=== PATIENT | female | born 1965 | race Caucasian/White ===

== ENCOUNTER → 2024-11-10 | Outpatient (CLI) | payer MEDICARE, MEDICAID, SELFPAY ==
[2024-11-10 16:55] LABS: Thyroid Stimulating Hormone 4.11 uIU/mL (0.55-4.78)
== END | disposition home or self-care (01) ==
LOC: COPL 14:58
PROVIDERS: PCP Family Medicine; Referring Provider Family Medicine; Visit Provider Family Medicine
DX: E03.9 Hypothyroidism, unspecified (principal)
CPT/HCPCS: 36415; 84443

== ENCOUNTER 2025-02-14 12:49 | Emergency (ER) | payer MEDICARE, MEDICAID, SELFPAY ==
[2025-02-14] VITALS (9 sets, daily range): BP systolic 89–173; BP diastolic 54–114; PULSE 75–130; RESP 17–94; TEMP 36.9–39.6; O2SAT 95–100; BMI 29.0
--- NOTE | 2025-02-14 13:04 | XR_ITS ---
Examination: CT abdomen and pelvis without contrast. Coronal 3-D reconstructions. Sagittal 2-D reconstructions. Date and time of exam:February 14, 2025 at 1323 hrs. Indications: Onset left-sided flank pain beginning 2 days ago CTDI: vol (mGy): 10.3 DLP: (mGycm): 620 Technique: Axial images of the abdomen have been obtained, 3 mm slice thickness Intravenous contrast material has not been administered. Low dose protocols were performed. One or more of the following dose reduction techniques were used; automated exposure control, adjustment of the mA and/or KV according to patient size, use of iterative reconstruction technique. Findings: AP dimension ascending thoracic aorta 4.2 cm Pulmonary artery segments are not enlarged No focal liver or splenic lesion Absent gallbladder Gastric sutures No pancreatic mass Left renal calculi, the largest 14 mm No hydronephrosis or ureteral calculi No bowel obstruction No diverticulitis No bladder mass or bladder calculi Mild thickening of urinary bladder wall Impression: Multiple left renal calculi, no hydronephrosis or ureteral calculi No bladder mass or bladder calculi Mild bladder wall thickening, consider cystitis
--- NOTE | 2025-02-14 13:05 | EKG_ITS ---
[facility] Test Date: 2025-02-14 Pat Name: RUPERTO RASHID Department: Room: - Gender: Female Hardness Tester: : 1965 Requested By: Gustavo Butcher Order Number: [id number] Reading MD: Gustavo Butcher Measurements Intervals Platter Rate: 129 P: 63 HI: 146 QRS: 64 QRSD: 86 T: 66 QT: 355 QTc: 522 Interpretive Statements SINUS TACHYCARDIA WITH OCCASIONAL SUPRAVENTRICULAR PREMATURE COMPLEXES NONSPECIFIC T-WAVE ABNORMALITY ABNORMAL RHYTHM ECG Compared to ECG 04/24/2024 21:57:02 T-wave abnormality now present Atrial-paced complex(es) or rhythm no longer present Prolonged QT interval no longer present /store/S0/[id number].pdf
--- NOTE | 2025-02-14 13:07 | XR_ITS ---
Examination: Duplex scan of the lower extremity, unilateral left Date and time of exam: February 14, 2025 1335 hrs. Indications: Onset left leg pain today Technique: Duplex scan of the extremity veins using B-mode/grayscale imaging and Doppler spectral analysis and color flow Attention is directed to internal echogenicity, compression and augmentation involving these veins, color flow assessment, spectral analysis Findings: Major deep venous structures in the extremity demonstrate normal course and caliber. There is no evidence of deep vein thrombosis. Normal color flow and spectral analysis Impression: Negative for DVT..
--- NOTE | 2025-02-14 13:09 | PD.EDADULT ---
ED General RME/HPI General Chief complaint: Extremity Problem,Nontraumatic Stated complaint: LEG PAIN Time Seen by Provider: 02/14/25 13:04 Arrival date/time: 02/14/25 12:49 CC: Left lower extremity pain numbness to the bottom of the foot with pain that radiates from the top of the foot up to the thigh. Patient also complaining of left flank and left chest pain. Patient is very anxious. She is tachycardic EMS report stable vital signs other than tachycardia. Onset last night. Related Data Home Medications ?Medication ?Instructions ?Recorded ?Confirmed diclofenac sodium 1 % topical gel 1 g topical PRN PRN Pain, Mild 12/29/21 05/27/24 gabapentin 300 mg capsule 300 mg PO 4XD 04/24/24 05/27/24 hydrochlorothiazide 12.5 mg capsule 12.5 mg PO 1XD 04/24/24 05/27/24 hydromorphone 4 mg tablet 4 mg PO 6 TIMES DAILY PRN Pain 04/24/24 05/27/24 levothyroxine 50 mcg tablet 50 mcg PO QAM 04/24/24 05/27/24 morphine 15 mg tablet,extended 15 mg PO BID PRN Pain 04/24/24 05/27/24 release tizanidine 4 mg tablet 4 mg PO 6 TIMES DAILY PRN Muscle 04/24/24 05/27/24 Spasm Previous Rx's ?Medication ?Instructions ?Recorded amlodipine 5 mg tablet 5 mg PO BID #60 tabs 04/26/24 amoxicillin 500 mg-potassium 1 tab PO BID #8 tabs 04/26/24 clavulanate 125 mg tablet (Augmentin) doxycycline hyclate 100 mg capsule 100 mg PO BID #8 caps 04/26/24 cephalexin 500 mg capsule 500 mg PO TID #21 caps 05/20/24 amoxicillin 875 mg-potassium 1 tab PO Q12H #10 tabs 05/25/24 clavulanate 125 mg tablet ciprofloxacin HCl 500 mg tablet 500 mg PO BID #14 tabs 02/14/25 (Cipro) Allergies Allergy/AdvReac Type Severity Reaction Status Date / Time No Known Allergies Allergy Verified 05/27/24 10:34 Review of Systems Review of Systems Narrative Review of Systems: GEN: No fever, no chills, no weight loss EYES: No discharge, no visual changes, no pain HEENT: No ear pain, no congestion, no sore throat PULM: No shortness of breath, no cough, no congestion CV: No chest pain, no dyspnea on exertion, no palpitations GI: No nausea, no vomiting, no diarrhea, no pain, no constipation : No frequency, no urgency, no dysuria MUSC/SKEL: No joint pain, no back pain, + lower extremity pain SKIN: No rash PSYCH: No hallucinations, no depression HEME/LYMPH: No easy bleeding or bruising tendencies NEURO: No weakness, no headache Past Medical History Past Medical History NEUROLOGIC: Positive Cerebrovascular Accident (tia), Transient Ischemic Attacks (TIA) and Migraine; Negative Neurological Disorders, Dementia, Alzheimer's Disease, Parkinson's Disease, Brain Tumor, Meningitis, Seizures, Epilepsy, Multiple Sclerosis, Cerebral Palsy, Amyotrophic Lateral Sclerosis (ALS/Corrie Gehrig's), Guillain-Perley Syndrome, Spina Bifida, Paralysis, Peripheral Neuropathy, Mina's Palsy, Subdural Hematoma, Head Trauma or Spinal Cord Injury CARDIAC: Positive Cardiac Disorders, Cardiac Arrhythmia and Hypertension; Negative Myocardial Infarction, Atrial Fibrillation, Angina, Heart Murmur, Coronary Artery Disease, Atherosclerotic Heart Disease, Hypercholesterolemia, Aneurysm, Congestive Heart Failure, Congenital Heart Disease, Rheumatic Fever, Cardiomyopathy, Edema, Pericarditis, Cellulitis, Deep Vein Thrombosis, Hypotension or Varicose Veins RESPIRATORY: Negative Chronic Obstructive Pulmonary Disease (COPD), Asthma, Bronchitis, Emphysema, Pneumonia, Pulmonary Fibrosis, Cystic Fibrosis, Tuberculosis, Pulmonary Embolism, Pulmonary Edema or Sleep Apnea GASTROINTESTINAL: Positive Gastrointestinal Disorders, Gastrointestinal Bleed, Ulcerative Colitis, Ulcer, Hemorrhoids, Gastroesophageal Reflux Disease and Obesity; Negative Hepatitis, Cirrhosis, Pancreatitis, Celiac Disease, Gall Bladder Disease, Esophageal Varices, Garcia's Esophagus, Colitis, Diverticulitis, Diverticulosis, Colorectal Cancer, Irritable Bowel, Crohn's Disease, Obstructive Bowel or Hiatal Hernia GENITOURINARY: Negative Genitourinary Disorders, Renal Disease, Kidney Stones, Polycystic Kidney Disease, Neurogenic Bladder, Inguinal Hernia, Dialysis, Prostate Cancer or Benign Prostatic Hyperplasia REPRODUCTIVE: Positive Endometriosis, Pelvic Inflammatory Disease and Previous Pregnancies; Negative Breast Cancer, Genital Herpes, Gonorrhea, Syphilis, Testicular Cancer or Uterine Prolapse MUSCULOSKELETAL: Positive Musculoskeletal Disorders, Arthritis, Osteoporosis, Degenerative Disk Disease, Fibromyalgia and Degenerative Joint Disease; Negative Muscular Dystrophy, Myasthenia Gravis, Marfan's Syndrome, Bone Cancer, Rheumatoid Arthritis, Gout, Scoliosis, Carpal Tunnel Syndrome, Fractures, Osteomyelitis or Poliovirus ENT: Negative Cataracts, Glaucoma, Blind, Retinal Detachment, Macular Degeneration, Ear Infection, Deafness, Head Trauma or Eye Prosthesis ENDOCRINE: Positive Hypothyroidism (tejinder's disease); Negative Endocrine Disorders, Diabetes Mellitus Type 1, Diabetes Mellitus Type 2, Hypoglycemia, Amarilis's Syndrome, [place]'s Disease, Hyperthyroidism, Parathyroid Disease, Pituitary Disease, Systemic Lupus Erythematosus, Syndrome of Inappropriate Antidiuretic Hormone (SIADH), Adrenal Disease or Graves' Disease HEMATOLOGIC: Positive Blood Disorders; Negative Anemia, Leukemia, Hemophilia, Thalassemia, Sickle Cell Disease or Clotting Problems PSYCHO/SOCIAL: Positive Depression and Anxiety; Negative Psychiatric Problems, Schizophrenia, Recreational Drug Use, Bipolar Disorder, Behavior Problems, Self-Mutilation, Attention Deficit Disorder, Attention Deficit Hyperactivity Disorder, Depression, Post Traumatic Stress Disorder or Eating Disorder OTHER HISTORY: Positive Hospitalization, Autoimmune Disease, Falls, Blood Transfusions, Chicken Pox, Measles and Mumps; Negative Down Syndrome, Autism, Developmental Delay, Shingles, Blood Transfusion Reaction, Anesthesia Reactions, Organ Transplant, Chemotherapy, Radiation Therapy, Hyperbaric Therapy, MRSA, VRSA, Vancomycin-Resistant Enterococci, Human Immunodeficiency Virus (HIV), Rubella (Peruvian Measles), Pertussis, Clostridium Difficile, Cancer, Breast Cancer, Cervical Cancer, Colorectal Cancer, Lung Cancer, Ovarian Cancer, Prostate Cancer or Testicular Cancer Family History FAMILY HISTORY: Positive Family Respiratory Disorders, Family Cardiac Disorders, Family Gastrointestinal Problems, Family Cancer and Family Surgery; Negative Family Psychiatric Problems or Family Anesthesia Reaction Surgical History SURGICAL: Positive Cardiac Surgery, Pacemaker, Abdominal Surgery, Gastric Bypass Surgery and Section; Negative Open Heart Surgery, Coronary Artery Bypass Graft, Valve Replacement, Vascular Surgery, Coronary Stent, Cardiac Catheterization, Angiogram, Auto Implanted Cardiovert Defib, Carotid Endarterectomy, Endocrine Surgery, Thyroidectomy, Ear Surgery, Tympanostomy Tube, Eye Surgery, Nose Surgery, Oral Surgery, Tonsillectomy, Adenoidectomy, Cochlear Implant, Corneal Transplant, Throat Surgery, Tracheostomy, Gastrostomy, Bowel Surgery, Nephrectomy, Transurethral Resection, Joint Replacement, Amputation, Open Reduction Internal Fixation, Arthroscopy, Neurologic Surgery, Brain Shunt, Mastectomy, Lumpectomy, Hysterectomy, Tubal Ligation, Vasectomy or Organ Transplant Social History SMOKING STATUS: Never smoker SECOND HAND EXPOSURE: No ED Exam Narrative Physical exam: [General: Anxious, but appears not in any acute distress Head normocephalic HEENT: Eyes pupils are PERRLA EOMs are intact mouth pink moist membranes uvula is midline swallow symmetrical within acceptable limits Neck is supple nontender Chest equal chest rise nontender to palpation Respiratory: Clear to auscultation no wheezes crackles or rubs CV: Rate rhythm is regular no murmurs rubs or clicks Abdomen is soft nontender no masses positive bowel sounds all 4 quadrants Back: No CVA tenderness no spinous process tenderness from cervical spine thoracic and lumbar spine Skin: Intact no petechiae rash induration ulceration or crepitus Extremities: Moving all extremity against resistance cap refill less than 2 seconds neurosensory intact patient has bilateral lower extremity tremens until engage in a focused conversation the tremens stops. Patient has decreased range of motion of the left lower extremity secondary to pain. Patient describes the pain as fire when touched on the bottom of her foot. Neuro: Awake alert oriented x3 Glascow coma 15 no focal deficits] Course Quality Measures none Orders Category Date Time Status Bedside COVID-19 Antigen Test NOW Care 02/14/25 14:13 Completed Bedside Influenza A&B Antigen Test NOW Care 02/14/25 14:13 Completed Yarder Boss STAT Care 02/14/25 14:11 Completed Continuous Pulse Oximetry STAT Care 02/14/25 14:11 Completed EKG (ED ONLY) *Do not use* NOW Care 02/14/25 13:05 Completed NPO STAT Care 02/14/25 14:11 Completed Saline [Insert IV] NOW Care 02/14/25 13:04 Completed Strict Intake and Output Routine Care 02/14/25 14:[address] abdomen pelvis wo con Stat Exams 02/14/25 13:04 Completed EKG (ED Only) Stat Exams 02/14/25 13:05 Draft US venous doppler LE LT Stat Exams 02/14/25 13:07 Completed B-Type Natriuretic Peptide Stat Lab 02/14/25 13:51 Completed Blood Culture (Lab) Stat Lab 02/14/25 14:30 Received CBC Stat Lab 02/14/25 14:35 Completed Comprehensive Metabolic Panel Stat Lab 02/14/25 13:51 Completed Drug Screen,Urine Stat Lab 02/14/25 16:35 Completed LDH (Lactate Dehydrogenase) Stat Lab 02/14/25 13:51 Completed Lactate (Lactic Acid) Stat Lab 02/14/25 14:35 Completed Lactic Acid [Lactate (Lactic Acid)] Stat Lab 02/14/25 17:59 Completed Lipase Stat Lab 02/14/25 14:35 Completed Magnesium Stat Lab 02/14/25 13:51 Completed Partial Thromboplastin Time Stat Lab 02/14/25 13:51 Completed Phosphorous Stat Lab 02/14/25 14:35 Completed Procalcitonin Stat Lab 02/14/25 14:35 Completed Prothrombin Time with INR Stat Lab 02/14/25 13:51 Completed Troponin I Stat Lab 02/14/25 13:51 Completed Urinalysis Stat Lab 02/14/25 16:35 Completed Urine Culture Stat Lab 02/14/25 16:35 Received Acetaminophen Tab [Tylenol ES Tab] Med 02/14/25 14:16 Discontinued 1,000 mg PO X1 ONE Morphine Inj Med 02/14/25 13:53 Discontinued 4 mg IVP X1 ONE Ondansetron Inj [Zofran Inj] Med 02/14/25 13:53 Discontinued 4 mg IV X1 ONE Sodium Chloride 0.9% 1000 ml [Ns] 1,000 ml Med 02/14/25 14:17 Discontinued IV 999 mls/hr Sodium Chloride 0.9% 1000 ml [Ns] 1,000 ml Med 02/14/25 16:08 Discontinued IV 999 mls/hr cefTRIAXone/D5w 1gm IV premix [Rocephin/D5w 1gm IV Med 02/14/25 18:40 Discontinued premix] 1 gm in 50 ml IV X1 tiZANidine HCL [Zanaflex] Med 02/14/25 15:00 Discontinued 4 mg PO X1 ONE Oxygen Delivery NOW RT 02/14/25 14:11 Completed Vital Signs Vital signs: Vital Signs Temperature 103.2 F H 02/14/25 14:16 Pulse Rate 130 H 02/14/25 14:16 Respiratory Rate 20 02/14/25 14:16 Blood Pressure 173/114 H 02/14/25 14:16 Pulse Oximetry (%) 96 02/14/25 14:16 Oxygen Delivery Method Room Air 02/14/25 14:16 Discharge Plan Plan Patient Disposition: HOME (Self Care) Patient condition on transfer: Stable Prescriptions/Referrals Prescriptions/Med Rec: New ciprofloxacin HCl [Cipro] 500 mg tablet 500 mg PO BID Qty: 14 0RF No Action amoxicillin-pot clavulanate 875-125 mg tablet 1 tab PO Q12H Qty: 10 0RF diclofenac sodium 1 % gel 1 g topical PRN MDD TID PRN (Reason: Pain, Mild) Patient Comments: APPLY TO THE AFFECTED AREA(S) 2-4 GRAM UP TO FOUR TIMES DAILY morphine 15 mg tablet extended release 15 mg PO BID PRN (Reason: Pain) Patient Comments: TAKE ONE TABLET BY MOUTH EVERY TWELVE HOURS NEEDED FOR PAIN hydromorphone 4 mg tablet 4 mg PO 6 TIMES DAILY PRN (Reason: Pain) tizanidine 4 mg tablet 4 mg PO 6 TIMES DAILY PRN (Reason: Muscle Spasm) Patient Comments: TABLET ONE TWO TABLET BY MOUTH THREE TIMES DAILY FOR MUSCLE SPASMS levothyroxine 50 mcg tablet 50 mcg PO QAM Patient Comments: TAKE ONE TABLET BY MOUTH EVERY MORNING FOR THYROID hydrochlorothiazide 12.5 mg capsule 12.5 mg PO 1XD Patient Comments: TAKE ONE CAPSULE BY MOUTH EVERY MORNING A DIURETIC gabapentin 300 mg capsule 300 mg PO 4XD Patient Comments: TAKE ONE CAPSULE BY MOUTH EVERY MORNING THEN TAKE ONE CAPSULE BY MOUTH IN THE AFTERNOON AND take 1 to 2 capsules BY MOUTH AT BEDTIME NEEDED FOR NERVE PAIN amoxicillin-pot clavulanate [Augmentin] 500-125 mg tablet 1 tab PO BID Qty: 8 0RF doxycycline hyclate 100 mg capsule 100 mg PO BID Qty: 8 0RF amlodipine 5 mg tablet 5 mg PO BID Qty: 60 0RF Rx Instructions: Take one tablet in AM, and one in PM if SBP>150 cephalexin 500 mg capsule 500 mg PO TID Qty: 21 0RF Referrals: Francois (PCP)Stew MD [Primary Care Provider] - In 1 week Problem List Clinical Impression: Fever, UTI (urinary tract infection) Patient/Caregiver Discharge Instructions Other Activity Instructions:: Take the medications as prescribed. Education Materials: Understanding Urinary Tract ... Print Language: Chadian Stand Alone Forms: Marla Award Info., Work/School Release, Patient Portal Info Letter PA/MERRY GO ROUND ATTENDANT Supervising Physician PA/MERRY GO ROUND ATTENDANT Supervising Physician: Gustavo Muñoz ENP MDM Patient Acuity High Acuity (complete MDM) Narrative: Patient has a significant past medical history for lupus hypertension repeat UTIs DVT opioid dependence chronic back pain most recently was admitted to the hospital for a chest wall abscess by a chemotherapy port. Clinical Information Provided by: patient and EMS [facility] Meds/Rx considered, not ordered None EKG EKG Interpretation(s): EKG performed at 1407 shows a ventricular rate of 129 [place] interval 146 QRS of 86 QTc of 431. The sinus tachycardia with occasional PAC baseline wander in V1 V2 Labs Lab(s) Interpretation(s): CBC shows no leukocytosis anemia thrombocytopenia Coags within acceptable limits CMP shows creatinine 1.4 no other electrolyte imbalances renal impairment T. bili at 1.4 no transaminitis. Troponin is negative BNP is negative Pro-Korey is negative Lactic is 3.2 Urine is positive for urinary tract infection UDS is negative for illicit drugs. Imaging Imaging Interpretation(s): Patient is positive for UTI. Medication Administration(s) Medication Administration History Discontinued Medications Acetaminophen (Acetaminophen 500 Mg Tablet) 1,000 mg PO X1 ONE Stop: 02/14/25 14:17 Last Admin: 02/14/25 14:37 Dose: 1,000 mg Documented By: ALONSO Sodium Chloride (Ns) 1,000 mls @ 999 mls/hr IV .Q1H1M ONE Stop: 02/14/25 15:17 Last Infusion: 02/14/25 15:50 Dose: Infused Documented By: Admin: 02/14/25 14:38 Dose: 999 mls/hr Documented By: ALONSO Sodium Chloride (Ns) 1,000 mls @ 999 mls/hr IV .Q1H1M ONE Stop: 02/14/25 17:08 Last Infusion: 02/14/25 17:49 Dose: Infused Documented By: Admin: 02/14/25 16:28 Dose: 999 mls/hr Documented By: ALONSO Ceftriaxone Sodium/Dextrose (Rocephin/D5w 1gm Iv Premix) 1 gm in 50 mls @ 100 mls/hr IV X1 ONE Stop: 02/14/25 19:09 Last Infusion: 02/14/25 19:33 Dose: Infused Documented By: Admin: 02/14/25 19:03 Dose: 100 mls/hr Documented By: ALONSO Morphine Sulfate (Morphine Sulf Inj 10 Mg/Ml Vial) 4 mg IVP X1 ONE Stop: 02/14/25 13:54 Last Admin: 02/14/25 14:36 Dose: 4 mg Documented By: RD Ondansetron HCl (Ondansetron Inj 2 Mg/Ml Inj 2 Ml) 4 mg IV X1 ONE; Protocol Stop: 02/14/25 13:54 Last Admin: 02/14/25 14:36 Dose: 4 mg Documented By: ALONSO Tizanidine HCl (Tizanidine Hcl 2 Mg Tablet) 4 mg PO X1 ONE Stop: 02/14/25 15:01 Last Admin: 02/14/25 16:22 Dose: 4 mg Documented By: ALONSO
[2025-02-14 14:36] LABS: Alanine Aminotransferase 10 U/L (10-49); Albumin, Serum 4.1 gm/dL (3.5-5.0); Albumin/Globulin Ratio 1.3 (1.2-2.2); Alkaline Phosphatase 111 U/L (46-116); Anion Gap 11 (7-16); Aspartate Amino Transferase 29 U/L (0-34); BUN/Creatinine Ratio 14 Ratio (12-20); Bilirubin,Total 1.4 mg/dL (0.3-1.2); Blood Urea Nitrogen 20 mg/dL (9-23); Calcium 9.4 mg/dL (8.3-10.6); Calcium (Corrected) 9.4 mg/dL (8.5-10.1); Carbon Dioxide 23.2 mMol/L (20.0-31.0); Chloride 106 mMol/L (98-107); Creatinine (Component) 1.4 mg/dL (0.6-1.3); Globulin 3.1 gm/dL (2.3-3.5); Glucose 102 mg/dL (74-106); LDH (Lactate Dehydrogenase) 339 U/L (120-246); Magnesium 1.7 mg/dL (1.6-2.6); Osmolality,Calculated 282 (275-295); Potassium 4.3 mMol/L (3.4-5.1); Sodium 140 mMol/L (136-145); Total Protein 7.2 gm/dL (5.7-8.2); Troponin I < 0.020 ng/mL (0.0-0.045); eGFR 44 See Note
[2025-02-14] MEDS: ONDANSETRON INJ 2 MG/ML INJ 2 ML 4 MG IV (14:36)
[2025-02-14] MEDS: MORPHINE SULF INJ 10 MG/ML VIAL 4 MG IVP (14:36)
[2025-02-14] MEDS: ACETAMINOPHEN 500 MG TABLET 1000 MG PO (14:37)
[2025-02-14] MEDS: SODIUM CHLORIDE 0.9% 1000 ML 1,000 ML 999 ML IV ×2 (14:38→16:28)
[2025-02-14 14:42] LABS: Lactate (Lactic Acid) 2.2 mMol/L (0.4-2.0)
[2025-02-14 14:48] LABS: Basophils % (Auto) 0 % (0-2.5); Eosinophils % (Auto) 0 % (0-10); Hematocrit 43.7 % (36.0-46.0); Hemoglobin 14.4 g/dL (12.0-16.0); Immature Granulocytes % (Auto) 0 % (0-0); Immature Granulocytes Auto 0.03 Thou/mm3 (0.00-0.00); Lymphocytes # (Auto) 0.8 Thou/mm3 (1.0-4.8); Lymphocytes % (Auto) 10 % (10-50); Mean Corpuscular Hemoglobin 28.4 pg (25.0-35.0); Mean Corpuscular Volume 86 fL (80-100); Monocytes # (Auto) 0.1 Thou/mm3 (0.0-0.8); Monocytes % (Auto) 1 % (0-12); Neutrophils # (Auto) 7.2 Thou/mm3 (1.8-7.7); Neutrophils % (Auto) 88 % (37-80); Nucleated Red Blood Cell % 0 /100 WBC (0); Platelet Count 165 Thou/mm3 (140-440); Red Blood Count 5.07 Miln/mm3 (4.00-5.20); White Blood Count 8.1 Thou/mm3 (3.6-11.0)
[2025-02-14 14:51] LABS: INR 1.2 (0.9-1.3); Prothrombin Time 12.6 Seconds (9.0-12.2)
[2025-02-14 15:14] LABS: Partial Thromboplastin Time 24.9 Seconds (22.0-36.0)
[2025-02-14 15:17] LABS: Lipase 25 U/L (12-53); Phosphorous 2.4 mg/dL (2.4-5.1); Procalcitonin 0.27 ng/ml (0.0-0.49)
[2025-02-14 15:18] LABS: B-Type Natriuretic Peptide < 20 pg/mL (0-100)
[2025-02-14] MEDS: tiZANidine HCL 2 MG TABLET 4 MG PO (16:22)
[2025-02-14 16:43] LABS: Collection Type, Urine Clean Catch
[2025-02-14 17:38] LABS: Reflex Lactate? Y
[2025-02-14 17:55] LABS: Bilirubin,Urine Negative (Negative); Blood,Urine Negative (Negative); Color,Urine Lt-Yellow (Lt Yel-Yel); Glucose, Urine Negative (Negative); Ketones,Urine Trace (Negative); Leukocyte Esterase,Urine Positive (Negative); Nitrite,Urine Positive (Negative); Protein,Urine Negative (Neg - Trace); RBC,Urine 3 /hpf (0-3); Squamous Epithelial Cell,Urine 1 /hpf (0-5); Urobilinogen,Urine Negative mg/dL (0.0-1.0); WBC,Urine 47 /hpf (0-5)
[2025-02-14 17:58] LABS: Bacteria,Urine 1+; Clarity,Urine Hazy (Clear/Hazy)
[2025-02-14 18:31] LABS: Lactate (Lactic Acid) 1.4 mMol/L (0.4-2.0)
[2025-02-14 18:46] LABS: Amphetamine/Methamp Scrn,U Negative (Negative); Barbiturate Screen,Urine Negative (Negative); Benzodiazepines Screen,Urine Negative (Negative); Benzoylecgonine Screen, Ur Negative (Negative); Fentanyl Screen,Urine Negative (Negative); Opiate Screen,Urine Positive (Negative); THC Screen,Urine Negative (Negative)
[2025-02-14] MEDS: cefTRIAXone/D5w 1gm IV premix 1 GM/50 ML BAG IV (19:03)
== END 2025-02-14 20:49 | disposition home or self-care (01) ==
PROVIDERS: Registered Nurse General Practice; Emergency Provider Family Medicine; PCP Family Medicine
DX: N39.0 Urinary tract infection, site not specified (principal); M79.605 Pain in left leg; R07.89 Other chest pain
CPT/HCPCS: 36415; 74176; 80053; 80307; 81001; 83605; 83615; 83690; 83735; 83880; 84100; 84145; 84484; 85025; 85610; 85730; 87040; 87077; 87086; 87186; 87400; 87811; 93005; 93971; 96361; 96365; 99284; J0696; J2270; J2405; J7030; A9270

== ENCOUNTER → 2025-02-24 | Outpatient (CLI) | payer MEDICARE, MEDICAID, SELFPAY ==
--- NOTE | 2025-02-24 12:40 | XR_ITS ---
Examination: Ribs, left, with PA chest, 5 views Technique: Chest PA, RIBS AP, RPO, LPO, AP coned lower ribs 5 views Exam date and time: February 24, 2025 1247 hours INDICATIONS: Left-sided chest and rib pain beginning 2 weeks ago Findings: Normal heart size Satisfactory position cardiac leads. No pneumothorax. Moderate osteopenia. No acute rib fractures No cortical bone destruction IMPRESSION: No active disease in the chest No acute rib fractures
== END | disposition home or self-care (01) ==
LOC: CDIM 12:34
PROVIDERS: Referring Provider Family Medicine; Visit Provider Family Medicine
DX: R07.9 Chest pain, unspecified (principal); R06.2 Wheezing
CPT/HCPCS: 71101

== ENCOUNTER → 2025-08-11 | Outpatient (CLI) | payer MEDICARE, MEDICAID, SELFPAY ==
--- NOTE | 2025-08-11 16:40 | XR_ITS ---
EXAMINATION: Cervical spine 3 views TECHNIQUE: AP lateral, and AP odontoid cervical spine 3 views Date and time: August 11, 2025, 1654 hours INDICATIONS: Patient fell 2 weeks ago with injury to neck, neck pain. FINDINGS: Straightening normal cervical lordosis 6 No diagnostic visualization C7 No acute fracture depicted IMPRESSION: Recommend follow-up swimmer's lateral view cervical spine to diagnostically assess C7
--- NOTE | 2025-08-11 16:40 | XR_ITS ---
EXAMINATION: Thoracic spine 3 views TECHNIQUE: AP, lateral, coned lateral upper dorsal spine 3 views Date and time: August 11, 2025, 1658 hours INDICATIONS: Patient fell 2 weeks ago with injury to the upper back, upper back pain. FINDINGS: Prominent osteopenia. No acute thoracic fracture Mild to moderate diffuse thoracic disc narrowing IMPRESSION: No acute thoracic fracture
[2025-08-11 17:54] LABS: Thyroid Stimulating Hormone 1.51 uIU/mL (0.55-4.78)
== END | disposition home or self-care (01) ==
LOC: CDIM 16:41 → COPL 17:02
PROVIDERS: PCP Family Medicine; Referring Provider Family Medicine; Visit Provider Radiology Diagnostic Radiology
DX: M54.2 Cervicalgia (principal); M54.6 Pain in thoracic spine; E03.9 Hypothyroidism, unspecified
CPT/HCPCS: 36415; 72040; 72070; 84443